=== PATIENT | female | born 1995 | race Caucasian/White ===

== ENCOUNTER 2020-05-27 22:44 | Emergency (ER) | payer MEDICAID, OTHER ==
[2020-05-27 23:00] VITALS: BP 133/70
[2020-05-27] MEDS ORDERED: DIPH/PERTUSS(ACELL)/TETANUS VAC/PF 0.5 ML SYR (>=10YO) IM ONE (23:11)
--- NOTE | 2020-05-27 23:15 | ER Document Report ---
ED Medical Screen (RME) - General Chief Complaint: Passed Out Prior to Arrival Stated Complaint: FALL/HEAD INJURY/SYNCOPE Time Seen by Provider: 05/27/20 22:57 Mode of Arrival: Wheelchair Information source: Patient Notes: HPI; 24-year-old female presents to the emergency room after a syncopal episode. Patient states she was standing outside when she became to feel dizzy went to sit down states went to stand back up with the dizziness worsened causing her to fall forward and hitting her head on the ground. Unsure if she passed out before after she hit her head. Positive LOC for 20seconds. Abrasion to forehead. Denies chest pain, shortness of breath, no difficulty breathing. PE: Alert and oriented x3. PERRLA, EOMI. Negative for raccoon eyes, negative for carrero signs. There is a 2 cm abrasion noted to the forehead. Bleeding is controlled. Lungs: Clear to auscultation without rales, rhonchi, wheezes. Heart: Regular rate and rhythm without murmurs, rubs, gallops. I have greeted and performed a rapid initial assessment of this patient. A comprehensive ED assessment and evaluation of the patient, analysis of test results and completion of the medical decision making process will be conducted by additional ED providers. I have specifically instructed the patient or family members with the patient to immediately return to any nursing staff should anything change in the patient's condition or with their chief complaint. TRAVEL OUTSIDE OF THE [place] IN LAST 30 DAYS: No - Related Data Allergies/Adverse Reactions: No Known Allergies Allergy (Verified 04/18/15 05:42) Past Medical History - Social History Chew tobacco use (# tins/day): No Frequency of alcohol use: Occasional Drug Abuse: None - Immunizations Hx Diphtheria, Pertussis, Tetanus Vaccination: Yes Physical Exam - Vital signs Vitals: Temp Pulse Resp BP Pulse Ox 97.5 F 84 14 133/70 H 100 05/27/20 22:49 05/27/20 22:49 05/27/20 22:49 05/27/20 22:49 05/27/20 22:49 Course - Vital Signs Vital signs: Temp Pulse Resp BP Pulse Ox 97.5 F 84 14 133/70 H 100 05/27/20 23:04 05/27/20 22:49 05/27/20 22:49 05/27/20 22:49 05/27/20 22:49
[2020-05-28 00:19] LABS: ABSOLUTE LYMPHOCYTES (AUTO) 1.3 10^3/uL (0.5-4.7); ABSOLUTE MONOCYTES (AUTO) 0.5 10^3/uL (0.1-1.4); ABSOLUTE NEUT (AUTO) 6.8 10^3/uL (1.7-8.2); BASOPHILS % (AUTO) 0.4 % (0-2); EOSINOPHILS % (AUTO) 0.5 % (0-6); HEMATOCRIT 40.7 % (36.0-47.0); HEMOGLOBIN 13.6 g/dL (12.0-15.5); LYMPHOCYTES % (AUTO) 15.3 % (13-45); MEAN CORPUSCULAR HEMOGLOBIN 28.1 pg (27.0-33.4); MEAN CORPUSCULAR HGB CONC 33.3 g/dL (32.0-36.0); MEAN CORPUSCULAR VOLUME 85 fl (80-97); MONOCYTES % (AUTO) 6.1 % (3-13); PLATELET COUNT 338 10^3/uL (150-450); RED BLOOD COUNT 4.82 10^6/uL (3.72-5.28); RED CELL DISTRIBUTION WIDTH 13.3 % (11.5-14.0); SEGMENTED NEUTROPHILS % (AUTO) 77.7 % (42-78); TOTAL CELLS COUNTED % (AUTO) 100 %; WHITE BLOOD COUNT 8.8 10^3/uL (4.0-10.5)
[2020-05-28 00:36] LABS: APPEARANCE,URINE SLIGHTLY-CLOUDY; BILIRUBIN,URINE NEGATIVE (NEGATIVE); COLOR,URINE YELLOW; GLUCOSE, URINE NEGATIVE (NEGATIVE); KETONES,URINE TRACE mg/dL (NEGATIVE); LEUKOCYTE ESTERASE,URINE NEGATIVE (NEGATIVE); NITRITE,URINE NEGATIVE (NEGATIVE); PROTEIN,URINE 30 mg/dL (NEGATIVE); URINE SPECIFIC GRAVITY 1.031
--- NOTE | 2020-05-28 00:48 | RADIOLOGY REPORT (SQ) ---
INDICATION: trauma/neck pain. Headache COMPARISON: None CORRELATION: None TECHNIQUE: Noncontrast spiral axial CT images were obtained from the skull base to vertex. Noncontrast spiral axial CT imaging through the cervical spine with multiplanar reconstructions. This exam was performed according to our departmental dose-optimization program, which includes automated exposure control, adjustment of the mA and/or kV according to patient size and/or use of iterative reconstruction techniques. FINDINGS: BRAIN: There is no evidence of acute intracranial hemorrhage, midline shift, mass effect or mass lesion. Rodgers-white differentiation is normal. There is no evidence of acute large territory infarct. Ventricles and extracerebral spaces are within normal limits, for age. The visualized paranasal sinuses are grossly clear. The orbits and eyeballs are unremarkable. The mastoid air cells are clear. Skull base and calvarium appear intact. CERVICAL SPINE: No acute displaced fracture is identified of the cervical spine. Alignment is anatomic. Gentle reversal of the normal cervical lordosis. No focality The uncovertebral joints and facets are within normal limits, for age. Surrounding soft tissues of the neck are unremarkable. IMPRESSION: No acute intracranial process is identified. No acute bony injury is seen to the cervical spine.
[2020-05-28 00:49] LABS: ALBUMIN 4.7 g/dL (3.5-5.0); ALKALINE PHOSPHATASE 43 U/L (38-126); ANION GAP 6 (5-19); ASPARTATE AMINO TRANSFERASE 24 U/L (14-36); BILIRUBIN,TOTAL 0.5 mg/dL (0.2-1.3); BLOOD UREA NITROGEN 15 mg/dL (7-20); CALCIUM 9.5 mg/dL (8.4-10.2); CARBON DIOXIDE 26 mmol/L (22-30); CHLORIDE 105 mmol/L (98-107); GLUCOSE 133 mg/dL (75-110)
[2020-05-28] MEDS ORDERED: HYDROCODONE/ACETAMINOPHEN 5-325 MG TABLET PO ONE (04:00)
--- NOTE | 2020-05-28 04:02 | ER Document Report ---
HPI - HPI Time Seen by Provider: 05/27/20 22:57 Pain Level: 1 Notes: Patient is an otherwise healthy 24-year-old female presents the emergency department chief complaint of syncopal episode. She reports that she has a history of syncopal episodes in the past. She states tonight she felt lightheaded, weak, dizzy and nauseated and then fell striking the front of her head onto concrete. She states that she immediately woke up. She reports that she feels a little "foggy". She denies ever having a cardiac work-up for her syncopal episodes. She denies any other medical history. - NEURO Neurology: REPORTS: Headache - REPRODUCTIVE LMP: May 10 Reproductive: DENIES: : Past Medical History - General Information source: Patient - Social History Smoking Status: Current Every Day Smoker Chew tobacco use (# tins/day): No Frequency of alcohol use: Occasional Drug Abuse: None Family History: Reviewed & Not Pertinent - Medical History Medical History: Negative Surgical Hx: Negative - Immunizations Hx Diphtheria, Pertussis, Tetanus Vaccination: Yes Vertical Provider Document - CONSTITUTIONAL Notes: PHYSICAL EXAMINATION: GENERAL: Well-appearing, well-nourished and in no acute distress. HEAD: Atraumatic, normocephalic. EYES: Pupils equal round and reactive to light, extraocular movements intact, conjunctiva are normal. ENT: Nares patent, oropharynx clear without exudates. Moist mucous membranes. NECK: Normal range of motion, supple without lymphadenopathy LUNGS: Breath sounds clear to auscultation bilaterally and equal. No wheezes rales or rhonchi. HEART: Regular rate and rhythm without murmurs ABDOMEN: Soft, nontender, nondistended abdomen. No guarding, no rebound. No masses appreciated. Female : deferred Musculoskeletal: Normal range of motion, no pitting or edema. No cyanosis. NEUROLOGICAL: Cranial nerves grossly intact. Normal speech, normal gait. Normal sensory, motor exams PSYCH: Normal mood, normal affect. SKIN: Contusion to forehead. - INFECTION CONTROL TRAVEL OUTSIDE OF THE [place] IN LAST 30 DAYS: No Course - Re-evaluation Re-evalutation: Laboratory 05/28/20 05/28/20 05/28/20 00:01 00:01 00:01 WBC 8.8 RBC 4.82 Hgb 13.6 Hct 40.7 MCV 85 MCH 28.1 MCHC 33.3 RDW 13.3 Plt Count 338 Lymph % (Auto) 15.3 Emmons % (Auto) 6.1 Eos % (Auto) 0.5 Baso % (Auto) 0.4 Absolute Neuts (auto) 6.8 Absolute Lymphs (auto) 1.3 Absolute Monos (auto) 0.5 Absolute Eos (auto) 0.0 Absolute Basos (auto) 0.0 Seg Neutrophils % 77.7 Sodium 137.1 Potassium 4.0 Chloride 105 Carbon Dioxide 26 Anion Gap 6 BUN 15 Creatinine 0.78 Est GFR ( Amer) > 60 Est GFR (MDRD) Non-Af > 60 Glucose 133 H Calcium 9.5 Total Bilirubin 0.5 Direct Bilirubin 0.0 Neonat Total Bilirubin Not Reportable Neonat Direct Bilirubin Not Reportable Neonat Indirect Bili Not Reportable AST 24 ALT 21 Alkaline Phosphatase 43 Total Protein 8.0 Albumin 4.7 Serum HCG, Qual NEGATIVE Urine Color Urine Appearance Urine pH Ur Specific [place] Urine Protein Urine Glucose (UA) Urine Ketones Urine Blood Urine Nitrite Urine Bilirubin Urine Urobilinogen Ur Leukocyte Esterase Urine WBC (Auto) Urine RBC (Auto) Urine Bacteria (Auto) Squamous Epi Cells Auto Urine Mucus (Auto) Urine Ascorbic Acid 05/28/20 00:01 WBC RBC Hgb Hct MCV MCH MCHC RDW Plt Count Lymph % (Auto) Emmons % (Auto) Eos % (Auto) Baso % (Auto) Absolute Neuts (auto) Absolute Lymphs (auto) Absolute Monos (auto) Absolute Eos (auto) Absolute Basos (auto) Seg Neutrophils % Sodium Potassium Chloride Carbon Dioxide Anion Gap BUN Creatinine Est GFR ( Amer) Est GFR (MDRD) Non-Af Glucose Calcium Total Bilirubin Direct Bilirubin Neonat Total Bilirubin Neonat Direct Bilirubin Neonat Indirect Bili AST ALT Alkaline Phosphatase Total Protein Albumin Serum HCG, Qual Urine Color YELLOW Urine Appearance SLIGHTLY-CLOUDY Urine pH 6.0 Ur Specific [place] 1.031 Urine Protein 30 H Urine Glucose (UA) NEGATIVE Urine Ketones TRACE H Urine Blood NEGATIVE Urine Nitrite NEGATIVE Urine Bilirubin NEGATIVE Urine Urobilinogen 2.0 H Ur Leukocyte Esterase NEGATIVE Urine WBC (Auto) 7 Urine RBC (Auto) 1 Urine Bacteria (Auto) TRACE Squamous Epi Cells Auto 11 Urine Mucus (Auto) MANY Urine Ascorbic Acid [address] 05/27/20 23:11 IMPRESSION: No acute intracranial process is identified. No acute bony injury is seen to the cervical spine. Head CT 05/27/20 23:11 IMPRESSION: No acute intracranial process is identified. No acute bony injury is seen to the cervical spine. Patient appears well, nontoxic, CT C-spine and CT head negative for any acute findings. Labs are reassuring. She has not had any cardiac arrhythmias while in the emergency department on the cardiac technician. She states she feels well. She will be encouraged to follow-up with cardiology for work-up as she has had recurrent syncopal episodes over the last several years. She is comfortable with discharge plan. ED return precautions discussed, patient verbalized un derstanding and agreement with same. - Vital Signs Vital signs: Temp Pulse Resp BP Pulse Ox 97.5 F 84 14 133/70 H 100 05/27/20 23:04 05/27/20 22:49 05/27/20 22:49 05/27/20 22:49 05/27/20 22:49 - Laboratory Result Diagrams: 05/28/20 00:01 05/28/20 00:01 Laboratory results interpreted by me: 05/28/20 05/28/20 00:01 00:01 Glucose 133 H Urine Protein 30 H Urine Ketones TRACE H Urine Urobilinogen 2.0 H Urine Ascorbic Acid 40 H - Diagnostic Test Radiology reviewed: Image reviewed, Reports reviewed - EKG Interpretation by Me EKG shows normal: Sinus rhythm Rate: Normal - EKG shows a sinus rhythm, rate of 71, normal axis, normal intervals, no ST segment elevations or depressions to suggest ischemia. QTc 435. Discharge - Discharge Clinical Impression: Syncope Qualifiers: Syncope type: unspecified Qualified Code(s): R55 - Syncope and collapse Abrasion of forehead Qualifiers: Encounter type: initial encounter Qualified Code(s): S00.81XA - Abrasion of other part of head, initial encounter Condition: Stable Disposition: HOME, SELF-CARE Additional Instructions: You were seen today after an episode of passing out. Your EKG here is normal. At this time, we do not feel that your episode of passing out was from any life- threatening cause. Please drink plenty of fluids over the next several days. Return to emergency department if you have any further episodes of syncope, headache, weakness, numbness, chest pain, or shortness of breath. Call to schedule an appointment with Dr. Lugo, skein spooler. Let his office know you are seen in the emergency department on May 27 and that we referred you to him for evaluation of your recurrent syncopal episodes. Referrals: CECILIA LUGO MD [ACTIVE STAFF] - Follow up as needed
--- NOTE | 2020-05-28 07:35 | EKG REPORT ---
SEVERITY:- OTHERWISE NORMAL ECG - SINUS ARRHYTHMIA, RATE 56-[address] ST ELEV, PROBABLE NORMAL EARLY REPOL PATTERN : Confirmed by: Damien Manzo MD 28-May-2020 07:34:24
== END 2020-05-28 04:38 | disposition home or self-care (01) ==
LOC: ER 22:44
DX: S00.81XA Abrasion of other part of head, initial encounter (principal); R55 Syncope and collapse; R42 Dizziness and giddiness; R53.1 Weakness; R11.0 Nausea; W22.8XXA Striking against or struck by other objects, initial encounter; F17.200 Nicotine dependence, unspecified, uncomplicated
CPT/HCPCS: 36415; 70450; 72125; 80053; 81001; 84703; 85025; 90471; 90715; 93005; 93010; 99285